=== PATIENT | female | born 1975 | race Caucasian/White ===

== ENCOUNTER 2017-03-11 01:04 | Emergency (ER) | payer MEDICAID ==
[~2017-03-11 01:04] MED LIST: CLONAZEPAM0.5 M1 PO; ELAVIL25 MG PO; IBUPROFEN200 M2 PO; INDERAL LA120 M2 PO; IRON1 TA1 PO; LAMICTAL200 M2 PO; LORTAB 5/500 TA1 TAB PO; MOTRIN600 MG PO; MULTIVITAMIN1 TAB PO; NORCO 5/325 TAB1 TAB PO; PERCOCET 5-3251 EACH PO; PERCOCET 5/3251 TAB PO; TRAZODONE HCL50 M1 PO; YAZ 28 TABLET1 TAB
[2017-03-11] MEDS ORDERED: NORCO 5-325 TA1 EACH PO ×2 (01:11→01:12)
[2017-03-11] MEDS ORDERED: ONDANSETRON ODT4 M1 PO (03:09)
[2017-05-31] MEDS ORDERED: NORCO 7.5-3251 EACH PO (17:40)
[2017-05-31] MEDS ORDERED: LAMICTAL200 M2 PO (17:41)
[2017-05-31] MEDS ORDERED: CYMBALTA30 M1 PO (17:41)
[2017-05-31] MEDS ORDERED: NEURONTIN400 M1 PO (17:41)
[2017-05-31] MEDS ORDERED: TRAZODONE HCL50 M1 PO (17:41)
[2017-05-31] MEDS ORDERED: ZOLOFT100 M1 PO (17:42)
[2017-06-04] MEDS ORDERED: VANCOCIN HCL125 MG PO (13:26)
== END 2017-03-11 03:50 ==
LOC: EDMED 01:04
DX: G43.909 Migraine, unspecified, not intractable, without status migrainosus (principal); I10 Essential (primary) hypertension; Z79.899 Other long term (current) drug therapy
CPT/HCPCS: J1885

== ENCOUNTER 2017-06-09 10:11 | Emergency (ER) | payer MEDICAID ==
[~2017-06-09] VITALS: Ht 160 cm; Wt 63.4 kg
[~2017-06-09 10:11] MED LIST changes: +CYMBALTA30 M1 PO; +NEURONTIN400 M1 PO; +NORCO 5-325 TA1 EACH PO; +NORCO 7.5-3251 EACH PO; +ONDANSETRON ODT4 M1 PO; +VANCOCIN HCL125 MG PO; +ZOLOFT100 M1 PO
[2017-06-09 10:41] LABS: BASO % 0.1 % (0-2); HCT-HEMATOCRIT 34.1 % (34.0-49.0); HGB-HEMOGLOBIN 11.8 gm/dl (12.0-15.5); IMMATURE GRANULOCYTES ABSOLUTE 0.46 tho/cmm (0-0.03); IMMATURE GRANULOCYTES PERCENT 1.6 % (0-0.3); LYMPH % 6.5 % (20-45); LYMPH ABSOLUTE COUNT 1.8 tho/cmm (0.8-4.5); MCH (MEAN CORPUSCULAR HGB) 33.4 pg (28.0-32.0); MCHC MEAN CORPUSCULAR HGB CONC 34.6 % (32.0-36.0); MCV (MEAN CELL VOLUME) 96.6 fl (82.0-96.0); MEAN PLATELET VOLUME 9.3 cmc (9.4-12.4); MONO % 6.8 % (0-12); MONOCYTE ABSOLUTE COUNT 1.9 tho/cmm (0.0-1.2); NEUTROPHIL ABSOLUTE COUNT 23.9 tho/cmm (1.6-8.0); NEUTROPHIL-AUTOMATED 23.9 tho/cmm (1.6-8.0); PLATELET COUNT 422 tho/cmm (150-450); RED BLOOD COUNT 3.53 mil/cmm (4.00-5.20); RED CELL DISTRIBUTION WIDTH 12.5 % (12.4-16.4); WHITE BLOOD COUNT 28.2 tho/cmm (4.0-10.0)
[2017-06-09] MEDS ORDERED: NORCO 10-325 T1 EACH PO (10:49)
[2017-06-09 10:50] LABS: URINE BILIRUBIN NEGATIVE (NEG); URINE BLOOD MODERATE (NEG); URINE GLUCOSE (UA) NEGATIVE (NEG); URINE KETONE NEGATIVE (NEG); URINE LEUKOCYTE ESTERASE POSITIVE (NEG); URINE NITRITE POSITIVE (NEG); URINE PH 6.5 (5.0-8.0); URINE PROTEIN MODERATE (NEG)
[2017-06-09] MEDS ORDERED: FLAGYL500 M1 PO (10:50)
[2017-06-09 10:51] LABS: URINE APPEARANCE CLOUDY; URINE COLOR YELLOW
[2017-06-09 10:59] LABS: URINE WBC 20-25 /[HPF] (0-5)
[2017-06-09 11:00] LABS: ALB/GLOB RATIO 0.6 (0.8-2.0); ALBUMIN 2.9 g/dl (3.5-5.0); ALKALINE PHOSPHATASE 111 U/L (33-138); ALT/SGPT 14 U/L (12-78); ANION GAP 13 mmol/L (0-20); AST/SGOT 11 U/L (10-40); BILIRUBIN,TOTAL 0.3 mg/dl (0-1.5); BLOOD UREA NITROGEN 6 mg/dl (6-24); CALCIUM 8.7 mg/dl (8.5-10.5); CARBON DIOXIDE-VENOUS 26 mmol/L (22-32); CHLORIDE 100 mmol/l (96-110); CREATININE 0.71 mg/dl (0.50-1.10); GLUCOSE 148 mg/dL (70-110); POTASSIUM 3.9 mmol/L (3.7-5.1); SODIUM 135 mmol/L (135-145); eGFR VALUE FOR BLACK >90 mL/Min
[2017-06-09 11:00] LABS: URINE AMORPHOUS 1+; URINE BACTERIA 1+; URINE RBC RARE /[HPF] (0-5)
[2017-06-09 11:15] LABS: PROCALCITONIN 0.21 ng/ml (0.05-0.09)
[2017-06-09] MEDS ORDERED: ZOFRAN4 M2 PO (12:38)
[2017-06-09] MEDS ORDERED: CEFDINIR300 M1 PO (12:38)
== END 2017-06-09 13:05 ==
LOC: EDMED 10:11
PROVIDERS: Emergency Medicine
DX: N39.0 Urinary tract infection, site not specified (principal); A04.7 Enterocolitis due to Clostridium difficile
CPT/HCPCS: J0696; J7030